=== PATIENT | male | born 1960 | race Caucasian/White ===

== ENCOUNTER → 2018-12-01 10:36 | Outpatient (CLI) | payer BC ==
[2018-12-01 11:17] LABS: HEMATOCRIT 46.8 % (42.0-54.0); HEMOGLOBIN 16.4 g/dL (13.5-17.5); MCH 31.8 pg (26.0-34.0); MCV 90.7 fL (80.0-100.0); MEAN PLATELET VOLUME 9.5 fL (7.4-10.4); PLATELET COUNT 153 10x3/uL (130-400); RBC 5.16 10x6/uL (4.20-6.10); RDW 12.6 % (11.5-14.5); WBC 6.7 10x3/uL (4.8-10.8)
[2018-12-01 11:42] LABS: ALBUMIN 3.5 g/dL (3.4-5.0); ANION GAP 14.8 mmol/L (8-16); BILIRUBIN - TOTAL 0.84 mg/dL (0.2-1.3); CALCIUM 8.6 mg/dL (8.5-10.1); CARBON DIOXIDE 27.1 mmol/L (21.0-32.0); CHOL - HDL RATIO 3.9 ratio (2.3-4.9); CREATININE - SERUM 1.2 mg/dL (0.6-1.3); POTASSIUM - SERUM 3.9 mmol/L (3.5-5.1); PROTEIN - SERUM 7.1 g/dL (6.4-8.2); THYROID STIMULATING HORMONE 0.8 uIU/mL (0.36-3.74)
[2018-12-01 12:07] LABS: EOSINOPHILS 3 % (0-7); LYMPHOCYTES 22 % (15-50); MONOCYTES 4 % (2-11); NEUTROPHILS 64 % (40-80); PLATELET ESTIMATE NORMAL
== END | disposition home or self-care (01) ==
LOC: D.LAB 10:36
PROVIDERS: Family Medicine
DX: I10 Essential (primary) hypertension (principal)

== ENCOUNTER → 2019-05-07 09:16 | Outpatient (CLI) | payer BC ==
[2019-05-07 09:56] LABS: ANION GAP 11.2 mmol/L (8-16); CARBON DIOXIDE 28.6 mmol/L (21.0-32.0); CREATININE - SERUM 1.4 mg/dL (0.6-1.3); MAGNESIUM - SERUM 1.8 mg/dL (1.8-2.4); PHOSPHOROUS 2.8 mg/dL (2.5-4.9); POTASSIUM - SERUM 3.8 mmol/L (3.5-5.1)
== END | disposition home or self-care (01) ==
LOC: D.LAB 09:16
PROVIDERS: ATTEND Family Medicine
DX: I10 Essential (primary) hypertension (principal); E23.6 Other disorders of pituitary gland; R53.83 Other fatigue; E66.9 Obesity, unspecified

== ENCOUNTER → 2020-12-30 07:57 | Outpatient (CLI) | payer OTHER ==
[2020-12-30 08:34] LABS: BASOPHILS 0.1 % (0-2); EOSINOPHILS 2.1 % (0-7); HEMATOCRIT 55.1 % (42.0-54.0); HEMOGLOBIN 18.6 g/dL (13.5-17.5); IMMATURE GRANULOCYTES 0.3 % (0-5); LYMPHOCYTE ABS# 1.52 10x3/uL (1.32-3.57); LYMPHOCYTES 15.7 % (15-50); MCH 31.3 pg (26.0-34.0); MCHC 33.8 g/dL (31.0-37.0); MCV 92.6 fL (80.0-100.0); MEAN PLATELET VOLUME 10.1 fL (7.4-10.4); MONOCYTES 9.5 % (2-11); NEUTROPHIL ABS# 6.98 10x3/uL (1.78-5.38); NEUTROPHILS 72.3 % (40-80); RBC 5.95 10x6/uL (4.20-6.10); RDW 13.7 % (11.5-14.5); WBC 9.7 10x3/uL (4.8-10.8)
[2020-12-30 08:38] LABS: PLATELET COUNT 201 10x3/uL (130-400)
[2020-12-30 08:55] LABS: BILIRUBIN NEGATIVE (NEGATIVE); KETONE MODERATE mg/dL (NEGATIVE); NITRITE NEGATIVE (NEGATIVE); UROBILINOGEN NORMAL mg/dL (< 2)
[2020-12-30 09:16] LABS: ANION GAP 14.6 mmol/L (8-16); BILIRUBIN - TOTAL 1.37 mg/dL (0.2-1.3); CALCIUM 9.4 mg/dL (8.5-10.1); CARBON DIOXIDE 28.1 mmol/L (21.0-32.0); CHOL - HDL RATIO 4.7 ratio (2.3-4.9); CREATININE - SERUM 1.2 mg/dL (0.6-1.3); LDL-HDL RATIO 2.4 ratio (1.5-3.5); POTASSIUM - SERUM 3.7 mmol/L (3.5-5.1); PROTEIN - SERUM 7.5 g/dL (6.4-8.2)
[2020-12-31 11:12] LABS: MICROALBUMIN - RANDOM URINE 38.6 ug/mL (Not Estab.)
== END | disposition home or self-care (01) ==
LOC: D.LAB 07:57
PROVIDERS: ATTEND Family Medicine
DX: I10 Essential (primary) hypertension (principal); E23.6 Other disorders of pituitary gland; E11.9 Type 2 diabetes mellitus without complications; R53.83 Other fatigue; Z00.00 Encounter for general adult medical examination without abnormal findings